=== PATIENT | female | born 1990 | race Two or more races ===

== ENCOUNTER 2020-02-20 15:07 | Emergency (ER) | payer OTHER ==
[~2020-02-20] VITALS: Ht 157.5 cm; Wt 77.6 kg
[2020-02-20 17:08] LABS: Urine Bacteria NONE SEEN /hpf (None Seen); Urine Blood 2+ /uL (Negative); Urine Specific Gravity 1.021 (1.001-1.035); Urine WBC 1 /hpf (0 - 5)
[2020-02-20 17:12] LABS: Basophils # (auto) 0 10 ^3/uL (0-0.2); Basophils % (auto) 0.6 % (0.0-2.0); Eosinophils # (auto) 0.3 10 ^3/uL (0-0.8); Hematocrit 42.5 % (36.0-46.0); Lymphocytes # (auto) 2.3 10 ^3/uL (0.4-5.4); Lymphocytes % (auto) 31.7 % (10.0-50.0); Mean Corpuscular Hemoglobin 29.5 pg (28.0-32.0); Mean Corpuscular Hgb Conc. 32.8 g/dL (32.0-36.0); Mean Corpuscular Volume 89.8 fL (80.0-100.0); Monocytes # (auto) 0.7 10 ^3/uL (0-1.3); Monocytes % (auto) 9.2 % (0.0-12.0); Neutrophils % (auto) 54.5 % (37.0-80.0); Nucleated Red Blood Cells % 0.1 %; Platelet Count (auto) 345 10^3/uL (140-450); Red Blood Cells 4.74 10^6/uL (4.0-5.20); Red Cell Distribution Width 13.5 % (11.8-14.3); White Blood Cell 7.3 10^3/uL (4.4-10.8)
[2020-02-20 17:31] LABS: Alanine Aminotransferase 258 U/L (13-56); Albumin 3.7 g/dL (3.4-5.0); Anion Gap 5 (5-15); Aspartate Aminotransferase 159 U/L (15-37); BUN/Creatinine Ratio 16.7; Blood Urea Nitrogen 13 mg/dL (7-18); Calcium 9.1 mg/dL (8.5-10.1); Carbon Dioxide 27 mmol/L (21-32); Chloride 107 mmol/L (98-107); GFR African American 112 mL/min; GFR Non-African American 93 mL/min; Glucose 91 mg/dL (74-106); Potassium 4.2 mmol/L (3.5-5.1); Sodium 139 mmol/L (136-145)
[2020-02-20 17:36] LABS: Alkaline Phosphatase 76 U/L (45-117); Bilirubin, Total 0.4 mg/dL (0.2-1.0)
[2020-02-20 18:33] VITALS: BP 126/82
== END 2020-02-20 18:59 | disposition home or self-care (01) ==
LOC: ER 15:07
DX: R07.89 Other chest pain (principal); K21.9 Gastro-esophageal reflux disease without esophagitis
CPT/HCPCS: 36415; 71046; 80053; 81001; 81025; 84484; 85025; 85379; 93005

== ENCOUNTER 2021-05-17 09:05 | Emergency (ER) | payer BC, OTHER ==
[~2021-05-17] VITALS: Ht 157.5 cm; Wt 82.6 kg
[2021-05-17 10:13] VITALS: BP 132/80
[2021-05-17] MEDS ORDERED: cefTRIAXone SOD 1,000 MG VL IM ONE (10:30)
[2021-05-17] MEDS ORDERED: IBUPROFEN 800 MG TAB PO ONE (10:30)
== END 2021-05-17 10:45 | disposition home or self-care (01) ==
LOC: ER 09:05
DX: H66.93 Otitis media, unspecified, bilateral (principal)
CPT/HCPCS: 96372; 99283; J0696

== ENCOUNTER 2021-05-21 12:29 | Emergency (ER) | payer BC ==
[~2021-05-21] VITALS: Ht 157.5 cm; Wt 81.6 kg
[2021-05-21] MEDS ORDERED: KETOROLAC TROMETH 60MG/2ML VIAL IM ONE (16:00)
[2021-05-21 16:19] VITALS: BP 150/86
== END 2021-05-21 16:39 | disposition home or self-care (01) ==
LOC: ER 12:29
DX: H66.93 Otitis media, unspecified, bilateral (principal)
CPT/HCPCS: 81025; 96372; 99283; J1885